=== PATIENT | male | born 1970 | race African-American/Black ===

== ENCOUNTER 2016-09-01 12:31 | Inpatient (IN) | payer OTHER ==
[2016-09-01 16:37] VITALS: BMI 28.1
--- NOTE | 2016-09-01 17:53 | HP ---
Admission ROS [facility] Chief Complaint: I WANT TO GO TO REHAB Allergies/Adverse Reactions: Allergies Allergy/AdvReac Type Severity Reaction Status Date / Time No Known Allergies Allergy Verified 09/01/16 17:40 History of Present Illness: 46 YEARS OLD MALE WITH LONG HISTORY OF MARIJUANA COCAINE NICOTINE DEPENDENCE HISTORY OF HEPATITIS C TREATED HAS SCHIZOAFFECTIVE DISORDER IS ADMITTED TO REHAB Exam Limitations: No Limitations - Ebola screening Have you traveled outside of the country in the last 21 days: No Have you had contact with anyone from an Ebola affected area: No Have you been sick,other than usual withdrawal symptoms: No Do you have a fever: No - Review of Systems Constitutional: Weight Stable EENT: reports: No Symptoms Reported Respiratory: reports: No Symptoms reported Cardiac: reports: No Symptoms Reported GI: reports: No Symptoms Reported : reports: No Symptoms Reported Musculoskeletal: reports: No Symptoms Reported Integumentary: reports: No Symptoms Reported Neuro: reports: No Symptoms reported Endocrine: reports: No Symptoms Reported Hematology: reports: No Symptoms Reported Psychiatric: reports: Judgement Intact, Orientated x3, Depressed Other Systems: Reviewed and Negative Patient History - Patient Medical History Hx Anemia: No Hx Asthma: No Hx Chronic Obstructive Pulmonary Disease (COPD): No Hx Cancer: No Hx Cardiac Disorders: No Hx Congestive Heart Failure: No Hx Hypertension: No Hx Hypercholesterolemia: No Hx Pacemaker: No HX Cerebrovascular Accident: No Hx Seizures: No Hx Dementia: No Hx Diabetes: No Hx Gastrointestinal Disorders: No Hx Liver Disease: No Hx Genitourinary Disorders: No Hx Sexually Transmitted Disorders: No Hx Renal Disease (ESRD): No Hx Thyroid Disease: No Hx Human Immunodeficiency Virus (HIV): No Hx Hepatitis C: Yes Hx Depression: No Hx Suicide Attempt: Yes (2013 OVER DOSE) Hx Bipolar Disorder: No Hx Schizophrenia: Yes - Patient Surgical History Past Surgical History: Yes Hx Appendectomy: Yes (1998) Hx Cholecystectomy: Yes (2013) Anesthesia Reaction: No - PPD History Previous Implant?: Yes Documented Results: Negative w/o proof Implanted On Prior [facility] Admission?: No PPD to be Administered?: Yes - Smoking Cessation Smoking history: Current every day smoker Have you smoked in the past 12 months: Yes Aproximately how many cigarettes per day: 7 Cigars Per Day: 0 Hx Chewing Tobacco Use: No Initiated information on smoking cessation: Yes 'Breaking Loose' booklet given: 09/01/16 - Substance & Tx. History Hx Alcohol Use: No Hx Substance Use: Yes Substance Use Type: Cocaine, Marijuana Hx Substance Use Treatment: Yes - Substances Abused Cocaine Route: Inhalation Frequency: 1-2 times per week Amount used: 300$ Age of first use: 32 Date of Last Use: 08/30/16 Family Disease History - Family Disease History Family Disease History: CA: Brother, Other: Father ( KILLED), Mother ( LUPUS) Admission Physical Exam [facility] - Vital Signs Vital Signs: Vital Signs - 24 hr 09/01/16 16:35 Temperature 97 F L Pulse Rate 75 Respiratory 20 Rate Blood Pressure 115/71 - Physical General Appearance: Yes: No Apparent Distress, Nourished, Appropriately Dressed HEENTM: Yes: Hearing grossly Normal, Normal ENT Inspection, Normocephalic, Normal Voice Respiratory: Yes: Chest Non-Tender, Lungs Clear, Normal Breath Sounds, No Respiratory Distress, No Accessory Muscle Use Neck: Yes: Supple, Trachea in good position Breast: Yes: Breasts Symetrical Cardiology: Yes: Regular Rhythm, Regular Rate, S1, S2 Abdominal: Yes: Normal Bowel Sounds, Non Tender, Soft Genitourinary: Yes: Within Normal Limits Back: Yes: Normal Inspection Musculoskeletal: Yes: full range of Motion, Gait Steady Extremities: Yes: Normal Inspection, Normal Range of Motion, Non-Tender Neurological: Yes: Fully Oriented, Alert, Motor Strength 5/5, Normal Mood/Affect , Normal Response Integumentary: Yes: Warm Lymphatic: Yes: Within Normal Limits - Diagnostic (1) Cocaine dependence, uncomplicated Current Visit: Yes Status: Chronic (2) Cannabis dependence, uncomplicated Current Visit: Yes Status: Chronic (3) Hepatitis C antibody test positive Current Visit: Yes Status: Resolved (4) Nicotine dependence Current Visit: Yes Status: Acute Qualifiers: Nicotine product type: cigarettes Substance use status: in withdrawal Qualified Code(s): F17.213 - Nicotine dependence, cigarettes, with withdrawal (5) Schizoaffective disorder with good prognostic features Current Visit: Yes Status: Suspected Cleared for Admission [facility] - Detox or Rehab [facility] Level of Care: Observation Bed Detox Regimen/Protocol: Not Applicable Claeared for Rehab Admission: Yes [facility] Breath Alcohol Content Breath Alcohol Content: 0 Urine Drug Screen - Results Drug Screen Negative: No Urine Drug Screen Results: THC-Marijuana, NATALIE-Cocaine
[2016-09-01] MEDS ORDERED: P-EPHED 60MG/TRIPROLIDI 2.5MG TABLET PO PRN (17:55)
[2016-09-01] MEDS ORDERED: guaiFENesin/D-METHORPHAN HB 10 ML UNIT-DOSE CUPS PO PRN (17:55)
[2016-09-01] MEDS ORDERED: MAGNESIUM HYDROX 2400MG/30ML ORAL SUSPENSION 30 ML CUP PO PRN (17:55)
[2016-09-01] MEDS ORDERED: MENTHOL/PHENOL 1 EACH UD MM PRN (17:55)
[2016-09-01] MEDS ORDERED: MAG HYDROX/AL HYDROX/SIMETH 30 ML UNIT-DOSE CUP PO PRN (17:55)
[2016-09-01] MEDS ORDERED: IBUPROFEN 400 MG TABLET (FP) PO PRN (17:55)
[2016-09-01] MEDS ORDERED: MAGNESIUM CITRATE 300 ML BOTTLE PO PRN (17:55)
[2016-09-01] MEDS ORDERED: LOPERAMIDE HCL 2 MG CAPSULE PO PRN (17:55)
[2016-09-01] MEDS ORDERED: ACETAMINOPHEN 325 MG TABLET (FP) PO PRN (17:55)
[2016-09-01] MEDS ORDERED: NICOTINE POLACRILEX 2 MG GUM BC PRN (17:55)
[2016-09-01] MEDS ORDERED: NICOTINE 14 MG/24 HOURS TOPICAL PATCH TD PRN (18:45)
[2016-09-01] MEDS: diphenhydrAMINE HCL 50 MG CAPSULE PO PRN (21:57)
[2016-09-01] MEDS: THIAMINE HCL 100 MG TABLET (FP) PO SCH (22:19)
[2016-09-02 00:12] LABS: URINE APPEARANCE CLEAR; URINE BILIRUBIN NEGATIVE (NEGATIVE); URINE BLOOD NEGATIVE (NEGATIVE); URINE COLOR YELLOW; URINE GLUCOSE (UA) NEGATIVE (NEGATIVE); URINE KETONE NEGATIVE (NEGATIVE); URINE NITRITE NEGATIVE (NEGATIVE); URINE PROTEIN NEGATIVE (NEGATIVE); URINE UROBILINOGEN NEGATIVE E.U./dl (0.2-1.0)
[2016-09-02 00:22] LABS: URINE LEUK ESTERASE TRACE (NEGATIVE)
[2016-09-02 00:25] LABS: URINE HYALINE CAST 1 /lpf; URINE MUCUS RARE; URINE RBC 13 /hpf (0-3); URINE WBC 17 /hpf (3-5)
--- NOTE | 2016-09-02 06:31 | HP ---
Psychiatrist Admission - Data Date of interview: 09/02/16 Admission source: Self-referred Identifying data: This is the second [facility] admission for this 46 years old single Black male, father of 2 daughters, unemployed on public assistance, domociled living with significant other Medical History: Significant for past treatment for Hep C and surgery for removal of appendix & galdbladder. Smokes 7 cigarettes daily Psychiatric History: Reports that his first psychiatric contact was when he went to [facility] 2006. He said that he was diagnosed with Schizoaffective Disorder and treated with Seroquel and Trazadone. Following his released from [facility] in 2009 he did not continue with psychiatric treatment for a while and eventually started seeing one at [facility] at [address] [place] [address] in the [place]. He was prescribed Seroquel 50 mg po HS and Trazadone 50 mg po HS which he stopped taking late 2015 when he stopped receiving outpatient services. Denies previous psychiatric inpatient admission but had an overnight ER admission in 2013 for suicidal attempt by overdose. He expresses his desire to resume taking psychotropic medications(Seroquel, Trazadone) during this admission. At present, denies wxperiencing psychotic , manic or depressive symptoms as wel as SI/HI Physical/Sexual Abuse/Trauma History: Denies history of emotional, physical or sexual abuse as well as DV relationship Additional Comment: Reports history of multiple arrests including 2 felony convictions. Denies being on parole/probation at present Vital Signs: Vital Signs - 24 hr 09/01/16 09/02/16 09/02/16 16:35 00:30 03:30 Temperature 97 F L Pulse Rate 75 Respiratory 20 18 18 Rate Blood Pressure 115/71 Allergies/Adverse Reactions: Allergies Allergy/AdvReac Type Severity Reaction Status Date / Time No Known Allergies Allergy Verified 09/01/16 17:40 Date of last physical exam: 09/01/16 Concur with the findings of this exam: Yes - Substance Abuse/Tx History Hx Alcohol Use: No Hx Substance Use: Yes Substance Use Type: Cocaine (Started using cocaine at age 32, consumes $300 worth 1-2 times weekly. Last used on 08/30/16) Hx Substance Use Treatment: Yes (one previous inpt detox & one inpt rehab @ [facility] ) - Admission Criteria Previous failed treatment: Yes Poor recovery environment: Yes Comorbidities: Yes Lacks judgement: Yes Mental Status Exam - Mental Status Exam Alert and Oriented to: Time, Place, Person Cognitive Function: Fair Patient Appearance: Well Groomed Mood: Hopeful, Euthymic Patient Behavior: Cooperative Speech Pattern: Clear Voice Loudness: Normal Thought Process: Intact, Goal Oriented Hallucinations: Denies Suicidal Ideation: Denies Homicidal Ideation: Denies Insight/Judgement: Fair Sleep: Poorly Appetite: Good Muscle strength/Tone: Normal Gait/Station: Normal Psychiatric Findings - Problem List ([place] 1, 2,3) (1) Cocaine dependence, uncomplicated Current Visit: Yes Status: Chronic (2) Cannabis dependence, uncomplicated Current Visit: Yes Status: Chronic (3) Nicotine dependence Current Visit: Yes Status: Acute Qualifiers: Nicotine product type: cigarettes Substance use status: in withdrawal Qualified Code(s): F17.213 - Nicotine dependence, cigarettes, with withdrawal (4) Schizoaffective disorder with good prognostic features Current Visit: Yes Status: Suspected (5) Hepatitis C Current Visit: Yes Status: Acute - Initial Treatment Plan Initial Treatment Plan: 1) Start Seroquel 50 mg po HS and Trazadone 50 mg po HS. 2) Monitor progress
[2016-09-02 09:50] LABS: MCH 32.4 pg (25.7-33.7); MCHC 33.6 g/dl (32.0-35.9); MEAN CELL VOLUME 96.4 fl (80-96); MEAN PLT VOLUME 8.3 fl (7.5-11.1); PLATELET COUNT 164 K/MM3 (134-434); RDW 13.7 % (11.9-15.9)
[2016-09-02 10:16] LABS: ALBUMIN 3.8 g/dl (3.4-5.0); BILIRUBIN,TOTAL 0.8 mg/dL (0.2-1.0); COCKROFT - GAULT 91.18; CREATININE 1.3 mg/dL (0.7-1.3); TOT PROT 7.3 g/dl (6.4-8.2)
[2016-09-02] MEDS: PRENATAL VITAMINS W/ FOLIC ACID TABLET (FP) PO SCH (10:18)
--- NOTE | 2016-09-02 11:43 | EKG ---
Test Reason : Blood Pressure : / mmHG Vent. Rate : 062 BPM Atrial Rate : 062 BPM P-R Int : 164 ms QRS Dur : 094 ms QT Int : 436 ms P-R-T Axes : 068 016 039 degrees QTc Int : 442 ms NORMAL SINUS RHYTHM NORMAL ECG NO PREVIOUS ECGS AVAILABLE Confirmed by SUSAN GSAPAR, GAYATHRI ([id number]) on 09/02/2016 11:43:38 AM Referred By: Confirmed By:GAYATHRI DAVIS MD
[2016-09-02 14:55] LABS: HIV 1 & 2 AB NEGATIVE; HIV 1 AGp24 NEGATIVE
[2016-09-02] MEDS: THIAMINE HCL 100 MG TABLET (FP) PO SCH (21:11)
[2016-09-02] MEDS ORDERED: traZODone HCL 50 MG TABLET (FP) PO SCH (22:00)
[2016-09-02] MEDS ORDERED: QUEtiapine FUMARATE 50 MG TABLET PO SCH (22:00)
[2016-09-03] MEDS: PRENATAL VITAMINS W/ FOLIC ACID TABLET (FP) PO SCH (10:30)
--- NOTE | 2016-09-03 15:14 | PN ---
Psychiatric Progress Note Vital Signs: Vital Signs Period Temp Pulse Resp BP Sys/Kincaid Pulse Ox Last 24 Hr 97.6 F 60 18-18 122/75 Date of Session: 09/03/16 Chief Complaint:: " My legs shakes at night since I've been taking Trazadone" HPI: Patient addressing Cocaine and Cannabis Dependence comorbid with Nicotine Dependence and Schizoaffective Disorder ROS: Hep C Current Medications: Active Medications Generic Name Dose Route Start Last Admin Trade Name Freq PRN Reason Stop Dose Admin Acetaminophen 650 mg 09/01/16 17:55 Tylenol - PO Q4H PRN PAIN Al Hydroxide/Mg Hydroxide 30 ml 09/01/16 17:55 Mylanta Oral Suspension - PO Q6H PRN DYSPEPSIA Diphenhydramine HCl 50 mg 09/01/16 17:55 09/01/16 21:57 Benadryl - PO 50 mg HSMR1 PRN Administration INSOMNIA Eucalyptus/Menthol/Phenol/Sorbitol 1 each 09/01/16 17:55 Cepastat Lozenge - MM Q4H PRN SORE THROAT Guaifenesin 10 ml 09/01/16 17:55 Robitussin Dm - PO Q6H PRN COUGH Hydroxyzine Pamoate 50 mg 09/01/16 17:55 Vistaril - PO Q4H PRN AGITATION Ibuprofen 400 mg 09/01/16 17:55 Motrin - PO Q6H PRN SEVERE PAIN Loperamide HCl 4 mg 09/01/16 17:55 Imodium - PO Q6H PRN DIARRHEA Magnesium Citrate 300 ml 09/01/16 17:55 Citroma - PO Q48H PRN CONSTIPATION Magnesium Hydroxide 30 ml 09/01/16 17:55 Milk Of Magnesia - PO DAILY PRN CONSTIPATION Nicotine 14 mg 09/01/16 18:45 Nicoderm Patch - TD DAILY PRN WITHDRAWAL(CONT SUBST) Nicotine Polacrilex 2 mg 09/01/16 17:55 Nicorette Gum - BC Q2H PRN NICOTINE REPLACEMENT RX Multivit/Folic Acid/Iron 1 tab 09/02/16 10:00 09/03/16 10:30 Vitamins ([facility]) - PO Not Given DAILY BETINA Pseudoephedrine/Triprolidine 1 combo 09/01/16 17:55 Actifed - PO TID PRN NASAL CONGESTION Quetiapine Fumarate 100 mg 09/03/16 22:00 Seroquel - PO HS BETINA Thiamine HCl 100 mg 09/01/16 22:00 09/02/16 21:11 Vitamin B1 - PO 100 mg HS BETINA Administration Current Side Effect: Yes (legs shaking while asleep) Lab tests ordered: Yes Lab tests reviewed: Yes Provider note:: Patient reports experiencing shaking of his legs while asleep and attributes that to Trazadone. He is currently on Trazadone 50mg po HS and Seroquel 50 mg po HS. Requests that Trazadone be disccontinue and Seroquel dosage increased to 100 mg Total face to face time:: 25 Mental Status Exam - Mental Status Exam Alert and Oriented to: Time, Place, Person Cognitive Function: Fair Patient Appearance: Well Groomed Mood: Hopeful, Euthymic Affect: Appropriate Patient Behavior: Cooperative Speech Pattern: Clear Voice Loudness: Normal Thought Process: Intact Thought Disorder: Not Present Hallucinations: Denies Suicidal Ideation: Denies Homicidal Ideation: Denies Insight/Judgement: Fair Sleep: Fair Appetite: Good Muscle strength/Tone: Normal Gait/Station: Normal Psychiatric Treatment Plan - Problem List (1) Cocaine dependence, uncomplicated Current Visit: Yes (2) Cannabis dependence, uncomplicated Current Visit: Yes (3) Nicotine dependence Current Visit: Yes Qualifiers: Nicotine product type: cigarettes Substance use status: in withdrawal Qualified Code(s): F17.213 - Nicotine dependence, cigarettes, with withdrawal (4) Schizoaffective disorder with good prognostic features Current Visit: Yes (5) Hepatitis C Current Visit: Yes Initial treatment plan: 1) Discontinue Trazadone and Seroquel. 2) Start Seroquel 100 mg po HS. 3) Monitor progress
[2016-09-03] MEDS: THIAMINE HCL 100 MG TABLET (FP) PO SCH (21:19)
[2016-09-03] MEDS: diphenhydrAMINE HCL 50 MG CAPSULE PO PRN (21:19)
[2016-09-03] MEDS: QUEtiapine FUMARATE 100 MG TABLET (FP) PO SCH (21:21)
[2016-09-04] MEDS: PRENATAL VITAMINS W/ FOLIC ACID TABLET (FP) PO SCH (10:15)
[2016-09-04] MEDS: diphenhydrAMINE HCL 50 MG CAPSULE PO PRN ×2 (21:03→23:54)
[2016-09-04] MEDS: THIAMINE HCL 100 MG TABLET (FP) PO SCH (21:03)
[2016-09-04] MEDS: QUEtiapine FUMARATE 100 MG TABLET (FP) PO SCH (21:03)
[2016-09-05] MEDS: PRENATAL VITAMINS W/ FOLIC ACID TABLET (FP) PO SCH (10:04)
[2016-09-05] MEDS: QUEtiapine FUMARATE 100 MG TABLET (FP) PO SCH (22:52)
[2016-09-05] MEDS: THIAMINE HCL 100 MG TABLET (FP) PO SCH (22:52)
[2016-09-06] MEDS: PRENATAL VITAMINS W/ FOLIC ACID TABLET (FP) PO SCH (10:16)
[2016-09-06] MEDS: QUEtiapine FUMARATE 100 MG TABLET (FP) PO SCH (22:02)
[2016-09-06] MEDS: THIAMINE HCL 100 MG TABLET (FP) PO SCH (22:02)
[2016-09-07] MEDS: PRENATAL VITAMINS W/ FOLIC ACID TABLET (FP) PO SCH (10:09)
[2016-09-07] MEDS: QUEtiapine FUMARATE 100 MG TABLET (FP) PO SCH (21:10)
[2016-09-07] MEDS: hydrOXYzine PAMOATE 50 MG CAPSULE (FP) PO PRN (21:11)
[2016-09-07] MEDS: THIAMINE HCL 100 MG TABLET (FP) PO SCH (21:11)
[2016-09-08] MEDS: PRENATAL VITAMINS W/ FOLIC ACID TABLET (FP) PO SCH (10:09)
[2016-09-08] MEDS: QUEtiapine FUMARATE 100 MG TABLET (FP) PO SCH (21:33)
[2016-09-08] MEDS: THIAMINE HCL 100 MG TABLET (FP) PO SCH (21:33)
[2016-09-08] MEDS: hydrOXYzine PAMOATE 50 MG CAPSULE (FP) PO PRN (21:34)
[2016-09-09] MEDS: PRENATAL VITAMINS W/ FOLIC ACID TABLET (FP) PO SCH (10:39)
[2016-09-09] MEDS: hydrOXYzine PAMOATE 50 MG CAPSULE (FP) PO PRN (21:39)
[2016-09-09] MEDS: QUEtiapine FUMARATE 100 MG TABLET (FP) PO SCH (21:40)
[2016-09-09] MEDS: THIAMINE HCL 100 MG TABLET (FP) PO SCH (21:40)
[2016-09-10] MEDS: PRENATAL VITAMINS W/ FOLIC ACID TABLET (FP) PO SCH (10:27)
--- NOTE | 2016-09-10 12:07 | PN ---
Psychiatric Progress Note Vital Signs: Vital Signs Period Temp Pulse Resp BP Sys/Kincaid Pulse Ox Last 24 Hr 97.6 F 62 18-18 122/80 Date of Session: 09/10/16 Chief Complaint:: Discharge Note HPI: Patient attending Cocaine Dependence comorbidwith Nicotine Dependence and Schizoaffective Disorder ROS: Hepatitis C Current Medications: Active Medications Generic Name Dose Route Start Last Admin Trade Name Freq PRN Reason Stop Dose Admin Acetaminophen 650 mg 09/01/16 17:55 Tylenol - PO Q4H PRN PAIN Al Hydroxide/Mg Hydroxide 30 ml 09/01/16 17:55 Mylanta Oral Suspension - PO Q6H PRN DYSPEPSIA Diphenhydramine HCl 50 mg 09/01/16 17:55 09/04/16 23:54 Benadryl - PO 50 mg HSMR1 PRN Administration INSOMNIA Eucalyptus/Menthol/Phenol/Sorbitol 1 each 09/01/16 17:55 Cepastat Lozenge - MM Q4H PRN SORE THROAT Guaifenesin 10 ml 09/01/16 17:55 Robitussin Dm - PO Q6H PRN COUGH Hydroxyzine Pamoate 50 mg 09/01/16 17:55 09/09/16 21:39 Vistaril - PO 50 mg Q4H PRN Administration AGITATION Ibuprofen 400 mg 09/01/16 17:55 Motrin - PO Q6H PRN SEVERE PAIN Loperamide HCl 4 mg 09/01/16 17:55 Imodium - PO Q6H PRN DIARRHEA Magnesium Citrate 300 ml 09/01/16 17:55 Citroma - PO Q48H PRN CONSTIPATION Magnesium Hydroxide 30 ml 09/01/16 17:55 Milk Of Magnesia - PO DAILY PRN CONSTIPATION Nicotine 14 mg 09/01/16 18:45 Nicoderm Patch - TD DAILY PRN WITHDRAWAL(CONT SUBST) Nicotine Polacrilex 2 mg 09/01/16 17:55 Nicorette Gum - BC Q2H PRN NICOTINE REPLACEMENT RX Multivit/Folic Acid/Iron 1 tab 09/02/16 10:00 09/10/16 10:27 Vitamins ([facility]) - PO Not Given DAILY BETINA Pseudoephedrine/Triprolidine 1 combo 09/01/16 17:55 Actifed - PO TID PRN NASAL CONGESTION Quetiapine Fumarate 100 mg 09/03/16 22:00 09/09/16 21:40 Seroquel - PO Not Given HS BETINA Thiamine HCl 100 mg 09/01/16 22:00 09/09/16 21:40 Vitamin B1 - PO Not Given HS BETINA Current Side Effect: No Lab tests ordered: Yes Lab tests reviewed: Yes Provider note:: Patient will complete this program on 09/11/16. He has met his treatment goals and will continue to address his issues in outpatient treatment at [facility]. He verbalized understanding of the negative consequences of his addiction and told internal communications writer that witnessing how far gone some peers in this program are in their addictive journey is a wake up call to maintain sobriety. He responded well to Seroquel 100 mg po HS. Script for that medication will be electronically transmitted to. He is stable for discharge on 09/11/16 Total face to face time:: 35 Mental Status Exam - Mental Status Exam Alert and Oriented to: Time, Place, Person Cognitive Function: Fair Patient Appearance: Well Groomed Mood: Hopeful, Euthymic Affect: Appropriate Patient Behavior: Cooperative Speech Pattern: Clear Voice Loudness: Normal Thought Process: Intact, Goal Oriented Thought Disorder: Not Present Hallucinations: Denies Suicidal Ideation: Denies Homicidal Ideation: Denies Insight/Judgement: Fair Sleep: Fair Appetite: Good Muscle strength/Tone: Normal Gait/Station: Normal Psychiatric Treatment Plan - Problem List (1) Cocaine dependence, uncomplicated Current Visit: Yes (2) Cannabis dependence, uncomplicated Current Visit: Yes (3) Nicotine dependence Current Visit: Yes Qualifiers: Nicotine product type: cigarettes Substance use status: in withdrawal Qualified Code(s): F17.213 - Nicotine dependence, cigarettes, with withdrawal (4) Schizoaffective disorder with good prognostic features Current Visit: Yes (5) Hepatitis C Current Visit: Yes Initial treatment plan: Patient will be disccharged tomorrow and referred to [facility] for treatment
[2016-09-10] MEDS: hydrOXYzine PAMOATE 50 MG CAPSULE (FP) PO PRN (21:55)
[2016-09-10] MEDS: QUEtiapine FUMARATE 100 MG TABLET (FP) PO SCH (21:56)
[2016-09-10] MEDS: THIAMINE HCL 100 MG TABLET (FP) PO SCH (21:56)
[2016-09-11 06:58] VITALS: BP 127/81; PULSE 55; TEMP 97.7
[2016-09-11] MEDS: PRENATAL VITAMINS W/ FOLIC ACID TABLET (FP) PO SCH (10:26)
== END 2016-09-11 09:35 | disposition home or self-care (01) | DRG 772 ==
LOC: YASAS 12:31 → Y3W 18:09
PROVIDERS: ADMIT Psychiatry & Neurology Psychiatry; ATTEND Psychiatry & Neurology Psychiatry
PROC: HZ42ZZZ Group Counseling for Substance Abuse Treatment, Cognitive-Behavioral (ICD-10-PCS; principal; 2016-09-01)
DX: F14.20 Cocaine dependence, uncomplicated (principal); F12.20 Cannabis dependence, uncomplicated; F17.213 Nicotine dependence, cigarettes, with withdrawal; F25.8 Other schizoaffective disorders; B18.2 Chronic viral hepatitis C; Z91.5 Personal history of self-harm
CPT/HCPCS: 36415; 80053; 81003; 81015; 85027; 86593; 87389; 93005; 93010

== ENCOUNTER 2018-11-19 11:27 | Inpatient (IN) | payer OTHER ==
[2018-11-19 12:27] VITALS: BMI 26.9
--- NOTE | 2018-11-19 13:15 | HP ---
CIWA Score Nausea/Vomitin Muscle Tremors: 2 Anxiety: 2 Agitation: 2 Paroxysmal Sweats: 2 Orientation: 0-Oriented Tacttile Disturbances: 2-Mild Itch/Numbness/Burn Auditory Disturbances: 1-Very Mild Visual Disturbances: 1-Very Mild Sensitivity Headache: 1-Very Mild CIWA-Ar Total Score: 15 - Admission Criteria [facility] Guidelines: Admission for Medically Managed Detox: Requires at least one of the followin. CIWA greater than 12 2. Seizures within the past 24 hours 3. Delirium tremens within the past 24 hours 4. Hallucinations within the past 24 hours 5. Acute intervention needed for co occurring medical disorder 6. Acute intervention needed for co occurring psychiatric disorder 7. Severe withdrawal that cannot be handled at a lower level of care (continued vomiting, continued diarrhea, abnormal vital signs) requiring intravenous medication and/or fluids 8. Patient presents the following: CIWA greater than 12 Admission Criteria Met: Admission criteria met Admission ROS S - [facility] Chief Complaint: I am here for detox and rehab Allergies/Adverse Reactions: Allergies Allergy/AdvReac Type Severity Reaction Status Date / Time No Known Allergies Allergy Verified 11/19/18 12:17 History of Present Illness: 48 year old male with alcohol dependence presents for detox with rehab to follow. He denies blackouts or seizures related to alcohol. Exam Limitations: No Limitations - Ebola screening Have you traveled outside of the country in the last 21 days: No (N) Have you had contact with anyone from an Ebola affected area: No Have you been sick,other than usual withdrawal symptoms: No Do you have a fever: No - Review of Systems Constitutional: Chills EENT: reports: Blurred Vision Respiratory: reports: SOB with Exertion Cardiac: reports: No Symptoms Reported GI: reports: Abdominal cramping : reports: No Symptoms Reported Musculoskeletal: reports: Back Pain, Muscle Pain Integumentary: reports: No Symptoms Reported Neuro: reports: Headache, Numbness, Tingling Endocrine: reports: No Symptoms Reported Hematology: reports: No Symptoms Reported Psychiatric: reports: Anxious, Depressed Other Systems: Reviewed and Negative Patient History - Patient Medical History Hx Anemia: No Hx Asthma: No Hx Chronic Obstructive Pulmonary Disease (COPD): No Hx Cancer: No Hx Cardiac Disorders: No Hx Congestive Heart Failure: No Hx Hypertension: No Hx Hypercholesterolemia: No Hx Pacemaker: No HX Cerebrovascular Accident: No Hx Seizures: No Hx Dementia: No Hx Diabetes: No Hx Gastrointestinal Disorders: No Hx Liver Disease: No Hx Genitourinary Disorders: No Hx Sexually Transmitted Disorders: No Hx Renal Disease (ESRD): No Hx Thyroid Disease: No Hx Human Immunodeficiency Virus (HIV): No Hx Hepatitis C: Yes (Treated) Hx Depression: Yes Hx Suicide Attempt: No Hx Bipolar Disorder: No Hx Schizophrenia: Yes - Patient Surgical History Past Surgical History: Yes Hx Neurologic Surgery: No Hx Cataract Extraction: No Hx Cardiac Surgery: No Hx Lung Surgery: No Hx Breast Surgery: No Hx Breast Biopsy: No Hx Abdominal Surgery: No Hx Appendectomy: Yes (1998) Hx Cholecystectomy: Yes (2013) Hx Genitourinary Surgery: No Hx Section: No Hx Orthopedic Surgery: No Hx Hysterectomy: No Anesthesia Reaction: No - PPD History Previous Implant?: Yes Documented Results: Negative w/proof Implanted On Prior [facility] Admission?: Yes Date: 09/03/16 PPD to be Administered?: No - Smoking Cessation Smoking history: Current every day smoker Have you smoked in the past 12 months: Yes Aproximately how many cigarettes per day: 10 Cigars Per Day: 0 Hx Chewing Tobacco Use: No Initiated information on smoking cessation: Yes 'Breaking Loose' booklet given: 11/19/18 - Substances abused Cocaine Substance route: Inhalation Frequency: 1-2 times per week Amount used: 400 usd Age of first use: 35 Date of last use: 11/18/18 Marijuana/Hashish Substance route: Smoking Frequency: Daily Amount used: 30 usd Age of first use: 11 Date of last use: 11/18/18 Alcohol Substance route: Oral Frequency: 3-6 times per week Amount used: beer 2x6 packs Age of first use: 35 Date of last use: 11/05/18 Family Disease History - Family Disease History Family Disease History: CA: Brother, Other: Father ( KILLED), Mother ( LUPUS) Admission Physical Exam S - Vital Signs Vital Signs: Vital Signs - 24 hr 11/19/18 12:21 Temperature 98 F Pulse Rate 60 Respiratory 14 Rate Blood Pressure 138/89 - Physical General Appearance: Yes: No Apparent Distress HEENTM: Yes: EOMI, Hearing grossly Normal, Normocephalic, Normal Voice, VENKATESH Respiratory: Yes: Chest Non-Tender, Lungs Clear, Normal Breath Sounds, No Respiratory Distress, No Accessory Muscle Use Neck: Yes: No masses,lesions,Nodules, Supple Breast: Yes: Breast Exam Deferred Cardiology: Yes: Regular Rhythm, Regular Rate, S1, S2 Abdominal: Yes: Normal Bowel Sounds, Non Tender, Soft Genitourinary: Yes: Within Normal Limits Back: Yes: Normal Inspection Musculoskeletal: Yes: full range of Motion, Gait Steady, Pelvis Stable Extremities: Yes: Tremors Neurological: Yes: certified pharmacist assistant II-XII NML intact, Fully Oriented, Alert, Normal Mood/ Affect, Normal Response, Numbness (in the right arm) Integumentary: Yes: Normal Color, Clammy Lymphatic: Yes: Within Normal Limits - Diagnostic (1) Alcohol dependence with uncomplicated withdrawal Current Visit: Yes Status: Acute (2) Hepatitis C Current Visit: No Status: Chronic Qualifiers: Viral hepatitis chronicity: carrier Qualified Code(s): B18.2 - Chronic viral hepatitis C (3) Nicotine dependence Current Visit: No Status: Acute Qualifiers: Nicotine product type: cigarettes Substance use status: uncomplicated Qualified Code(s): F17.210 - Nicotine dependence, cigarettes, uncomplicated (4) Cannabis dependence, uncomplicated Current Visit: No Status: Chronic (5) Cocaine dependence, uncomplicated Current Visit: No Status: Chronic Cleared for Admission S - Detox or Rehab [facility] Level of Care: Medically Managed Detox Regimen/Protocol: Librium Breathalyzer - Breathalyzer Breathalyzer: 0 Urine Drug Screen - Test Device Lot number: [id number] Expiration date: 08/26/20 - Control Is test valid?: Yes - Results Drug screen NEGATIVE: No Urine drug screen results: THC-Marijuana, NATALIE-Cocaine Inpatient Rehab Admission - Rehab Decision to Admit Inpatient rehab admission?: No
[2018-11-19] MEDS ORDERED: chlordiazePOXIDE HCL 25 MG CAPSULE PO ONE (13:21)
[2018-11-19] MEDS ORDERED: ACETAMINOPHEN 325 MG TABLET (FP) PO PRN ×2 (13:21)
[2018-11-19] MEDS ORDERED: MELATONIN 5 MG TABLETS PO PRN (13:21)
[2018-11-19] MEDS ORDERED: BISMUTH SUBSALICYLATE 524 MG/30 ML UD PO PRN (13:21)
[2018-11-19] MEDS ORDERED: METHOCARBAMOL 500 MG TABLET PO PRN (13:21)
[2018-11-19] MEDS ORDERED: MAG HYDROX/AL HYDROX/SIMETH 30 ML UNIT-DOSE CUP PO PRN (13:21)
[2018-11-19] MEDS ORDERED: chlordiazePOXIDE HCL 10 MG CAPSULE PO PRN (13:21)
[2018-11-19] MEDS ORDERED: MENTHOL/PHENOL 1 EACH UD MM PRN (13:21)
[2018-11-19] MEDS ORDERED: MAGNESIUM HYDROX 2400MG/30ML ORAL SUSPENSION 30 ML CUP PO PRN (13:21)
[2018-11-19] MEDS ORDERED: MAGNESIUM CITRATE 300 ML BOTTLE PO PRN (13:21)
[2018-11-19] MEDS ORDERED: IBUPROFEN 400 MG TABLET (FP) PO PRN (13:21)
[2018-11-19] MEDS: THIAMINE HCL 100 MG TABLET (FP) PO SCH (22:14)
[2018-11-19] MEDS: NICOTINE POLACRILEX 2 MG GUM BUC PRN (22:15)
[2018-11-20] MEDS: chlordiazePOXIDE HCL 25 MG CAPSULE PO SCH ×2 (05:51→22:05)
[2018-11-20 09:33] LABS: HEMATOCRIT 38.2 % (35.4-49); HEMOGLOBIN 13.3 GM/dL (11.7-16.9); MCH 32.9 pg (25.7-33.7); MCHC 34.8 g/dl (32.0-35.9); MEAN CELL VOLUME 94.6 fl (80-96); MEAN PLT VOLUME 8.2 fl (7.5-11.1); PLATELET COUNT 188 K/MM3 (134-434); RBC 4.04 M/mm3 (4.00-5.60); RDW 14.3 % (11.9-15.9); WHITE BLOOD COUNT 6.8 K/mm3 (4.0-10.0)
[2018-11-20 09:42] LABS: ALBUMIN 3.3 g/dl (3.4-5.0); BILIRUBIN,TOTAL 0.5 mg/dL (0.2-1); CALCIUM 8.5 mg/dL (8.5-10.1); POTASSIUM 3.7 mmol/L (3.5-5.1); TOT PROT 6.6 g/dl (6.4-8.2)
[2018-11-20] MEDS: PRENATAL VITAMINS W/ FOLIC ACID TABLET (FP) PO SCH (09:58)
--- NOTE | 2018-11-20 15:58 | PN ---
S CIWA - CIWA Score Nausea/Vomitin-Mild Nausea/No Vomiting Muscle Tremors: 3 Anxiety: 4-Mod. Anxious/Guarded Agitation: 2 Paroxysmal Sweats: 3 Orientation: 0-Oriented Tacttile Disturbances: 0-None Auditory Disturbances: 0-None Visual Disturbances: 0-None Headache: 0-None Present CIWA-Ar Total Score: 13 [facility] Progress Note (SOAP) Subjective: Anxious, interrupted sleep Objective: 11/20/18 15:54 Last Vital Signs Temp Pulse Resp BP Pulse Ox 97.9 F 53 L 18 120/69 11/20/18 13:11 11/20/18 13:11 11/20/18 13:11 11/20/18 13:11 Laboratory Tests 11/20/18 11/20/18 11/20/18 07:45 07:45 07:45 WBC 6.8 RBC 4.04 Hgb 13.3 Hct 38.2 MCV 94.6 MCH 32.9 MCHC 34.8 RDW 14.3 Plt Count 188 MPV 8.2 Sodium 141 Potassium 3.7 Chloride 106 Carbon Dioxide 28 Anion Gap 7 L BUN 18.0 Creatinine 1.0 Est GFR (CKD-EPI)AfAm 104.15 Est GFR (CKD-EPI)NonAf 89.86 Random Glucose 88 Calcium 8.5 Total Bilirubin 0.5 AST 11 L ALT 18 Alkaline Phosphatase 74 Total Protein 6.6 Albumin 3.3 L RPR Titer Nonreactive Labs reviewed Assessment: 11/20/18 15:58 Withdrawal sxs Plan: Continue detox Encouraged PO water intake
[2018-11-20] MEDS: THIAMINE HCL 100 MG TABLET (FP) PO SCH (22:19)
[2018-11-21] MEDS: chlordiazePOXIDE 5 MG CAPSULE PO SCH ×2 (05:57→13:38)
--- NOTE | 2018-11-21 09:18 | CONSULT ---
[facility] Psychiatric Consult - Data Date of interview: 11/21/18 Admission source: Self-referred Identifying data: Mr Gaviria is a 48 years old single Black male, father of 2 children, unemployed with no source of income, homeless seeking detox treatment for alcohol, cocaine and cannabis Substance Abuse History: Reports history of alcohol, cocaine and marijuana use. Refer to addiction counselor's summary for further information Medical History: Significant for history of treatment for Hep C and surgery( appendectomy, cholecystectomy). Smokes 10 cigarettes daily Psychiatric History: Patient is known to insurance underwriter from an encounter during a previous admission to this facility in August 2016. Historical narrative is consistent. He reports that his first psychiatric contact occured in 2006 while in group home. He said that he was diagnosed with Schizoaffective Disorder and treated with Seroquel and Trazadone. Following his released from group home in 2009 he did not continue with psychiatric treatment for a while and eventually started seeing one at [facility] at [address] [place] [address] in the [place]. He was prescribed Seroquel 50 mg po HS and Trazadone 50 mg po HS which he stopped taking late 2015 when he stopped receiving outpatient services. Most recent psychiatric treatment was in 2018 while in residential treatment at [facility] for 4-5 months. He was discharged from [facility] in February 2018. While there he said that he was prescribed Zoloft and Vistaril. Told insurance underwriter that he has been off medications since. Denies previous psychiatric inpatient admission but had an overnight ER admission in 2013 for suicidal attempt by overdose. At present, denies experiencing psychotic, manic symptoms as well as S/H ideations. However , reports feeling depressed and sleeping poorly. Requests to be ordered Seroquel during this current admission Physical/Sexual Abuse/Trauma History: Denies history of emotional, physical or sexual abuse as well as DV relationship Additional Comment: Reports history of multiple arrests including 2 felony convictions. Denies being on parole/probation at present Mental Status Exam - Mental Status Exam Alert and Oriented to: Time, Place, Person Cognitive Function: Fair Patient Appearance: Disheveled Mood: Depressed, Anxious Affect: Appropriate Patient Behavior: Cooperative Speech Pattern: Clear Voice Loudness: Normal Thought Process: Intact, Goal Oriented Hallucinations: Denies Suicidal Ideation: Denies Homicidal Ideation: Denies Insight/Judgement: Poor Sleep: Poorly Appetite: Fair Muscle strength/Tone: Normal Gait/Station: Normal Psychiatric Findings - Problem List ([place] 1, 2,3) (1) Schizoaffective disorder with good prognostic features Current Visit: No Status: Chronic (2) Substance induced mood disorder Current Visit: Yes Status: Acute (3) Substance-induced sleep disorder Current Visit: Yes Status: Acute (4) Alcohol dependence with uncomplicated withdrawal Current Visit: Yes Status: Acute (5) Cocaine dependence, uncomplicated Current Visit: No Status: Acute (6) Cannabis dependence, uncomplicated Current Visit: No Status: Acute (7) Nicotine dependence Current Visit: No Status: Chronic Qualifiers: Nicotine product type: cigarettes Substance use status: uncomplicated Qualified Code(s): F17.210 - Nicotine dependence, cigarettes, uncomplicated (8) Hepatitis C Current Visit: No Status: Chronic Qualifiers: Viral hepatitis chronicity: carrier Qualified Code(s): B18.2 - Chronic viral hepatitis C (9) History of appendectomy Current Visit: Yes Status: Resolved (10) Hx of cholecystectomy Current Visit: Yes Status: Resolved - Initial Treatment Plan Initial Treatment Plan: 1) Start Seroquel 50 mg po HS. 2) Continue inpatient detoxification
[2018-11-21] MEDS: hydrOXYzine PAMOATE 25 MG CAPSULE (FP) PO PRN ×2 (10:03→22:05)
[2018-11-21] MEDS: PRENATAL VITAMINS W/ FOLIC ACID TABLET (FP) PO SCH (10:04)
[2018-11-21] MEDS: NICOTINE POLACRILEX 2 MG GUM BUC PRN (10:05)
--- NOTE | 2018-11-21 11:07 | PN ---
S CIWA - CIWA Score Nausea/Vomitin-No Nausea/No Vomiting Muscle Tremors: 3 Anxiety: 2 Agitation: 3 Paroxysmal Sweats: 2 Orientation: 0-Oriented Tacttile Disturbances: 0-None Auditory Disturbances: 0-None Visual Disturbances: 0-None Headache: 0-None Present CIWA-Ar Total Score: 10 S Progress Note (SOAP) Subjective: restless sweats mild shakes the librium is making me too groggy Objective: 11/21/18 11:06 Vital Signs Temperature 97.7 F 11/21/18 09:28 Pulse Rate 57 L 11/21/18 09:28 Respiratory Rate 18 11/21/18 09:28 Blood Pressure 120/73 11/21/18 09:28 O2 Sat by Pulse Oximetry (%) Laboratory Tests 11/20/18 11/20/18 11/20/18 07:45 07:45 07:45 WBC 6.8 RBC 4.04 Hgb 13.3 Hct 38.2 MCV 94.6 MCH 32.9 MCHC 34.8 RDW 14.3 Plt Count 188 MPV 8.2 Sodium 141 Potassium 3.7 Chloride 106 Carbon Dioxide 28 Anion Gap 7 L BUN 18.0 Creatinine 1.0 Est GFR (CKD-EPI)AfAm 104.15 Est GFR (CKD-EPI)NonAf 89.86 Random Glucose 88 Calcium 8.5 Total Bilirubin 0.5 AST 11 L ALT 18 Alkaline Phosphatase 74 Total Protein 6.6 Albumin 3.3 L RPR Titer Nonreactive labs noted aaox3 ambulating no acute distress Assessment: 11/21/18 11:06 withdrawal sx Plan: continue detox with modified dose regimen increase fluids
[2018-11-21] MEDS: QUEtiapine FUMARATE 50 MG TABLET PO SCH (22:06)
[2018-11-21] MEDS: THIAMINE HCL 100 MG TABLET (FP) PO SCH (22:06)
[2018-11-22] MEDS ORDERED: chlordiazePOXIDE HCL 10 MG CAPSULE PO PRN
[2018-11-22] MEDS: chlordiazePOXIDE HCL 10 MG CAPSULE PO SCH ×2 (06:44→12:12)
[2018-11-22] MEDS: PRENATAL VITAMINS W/ FOLIC ACID TABLET (FP) PO SCH (10:19)
--- NOTE | 2018-11-22 11:31 | PN ---
S CIWA - CIWA Score Nausea/Vomitin-No Nausea/No Vomiting Muscle Tremors: 3 Anxiety: 1-Mildly Anxious Agitation: 2 Paroxysmal Sweats: No Perspiration Orientation: 0-Oriented Tacttile Disturbances: 0-None Auditory Disturbances: 0-None Visual Disturbances: 0-None Headache: 0-None Present CIWA-Ar Total Score: 6 BHS Progress Note (SOAP) Subjective: sweats interrupted sleep tired Objective: 11/22/18 11:35 Vital Signs Temperature 97.5 F L 11/22/18 09:34 Pulse Rate 78 11/22/18 09:34 Respiratory Rate 18 11/22/18 09:34 Blood Pressure 120/72 11/22/18 09:34 O2 Sat by Pulse Oximetry (%) aaox3 ambulating no acute distress Assessment: 11/22/18 11:35 mild withdrawal sx Plan: continue detox increase fluids
[2018-11-22] MEDS: NICOTINE POLACRILEX 2 MG GUM BUC PRN (21:30)
[2018-11-22] MEDS: QUEtiapine FUMARATE 50 MG TABLET PO SCH (22:11)
[2018-11-22] MEDS: THIAMINE HCL 100 MG TABLET (FP) PO SCH (22:11)
[2018-11-23] MEDS ORDERED: chlordiazePOXIDE HCL 10 MG CAPSULE PO ONE (05:00)
--- NOTE | 2018-11-23 08:59 | DS ---
[facility] Detox Discharge Summary Admission Date: 11/19/18 Discharge Date: 11/23/18 - History Present History: Alcohol Dependence, Cannabis Dependence, Cocaine Dependence - Physical Exam Results Vital Signs: Vital Signs Temperature 98.2 F 11/23/18 07:28 Pulse Rate 60 11/23/18 07:28 Respiratory Rate 20 11/23/18 07:28 Blood Pressure 108/65 11/23/18 07:28 O2 Sat by Pulse Oximetry (%) - Treatment Hospital Course: Detox Protocol Followed, Detoxed Safely, Responded well, Discharged Condition Good, Rehab Referral Accepted Patient has Accepted a Rehab Referral to[facility] - Medication Discharge Medications: Ambulatory Orders Quetiapine Fumarate [Seroquel -] 50 mg PO HS 09/01/16 traZODone HCL [Desyrel -] 50 mg PO HS 09/01/16 Sertraline HCl [Zoloft] 11/19/18 - Diagnosis (1) Alcohol dependence with uncomplicated withdrawal Current Visit: Yes Status: Chronic (2) Substance induced mood disorder Current Visit: Yes Status: Acute (3) Substance-induced sleep disorder Current Visit: Yes Status: Acute (4) History of appendectomy Current Visit: No Status: Resolved (5) Hx of cholecystectomy Current Visit: No Status: Resolved (6) Cannabis dependence, uncomplicated Current Visit: Yes Status: Chronic (7) Cocaine dependence, uncomplicated Current Visit: Yes Status: Chronic (8) Hepatitis C Current Visit: No Status: Chronic Qualifiers: Viral hepatitis chronicity: carrier Qualified Code(s): B18.2 - Chronic viral hepatitis C (9) Nicotine dependence Current Visit: Yes Status: Chronic Qualifiers: Nicotine product type: cigarettes Substance use status: uncomplicated Qualified Code(s): F17.210 - Nicotine dependence, cigarettes, uncomplicated (10) Schizoaffective disorder with good prognostic features Current Visit: No Status: Chronic - AMA Did Patient Leave Against Medical Advice: No
[2018-11-23] MEDS: PRENATAL VITAMINS W/ FOLIC ACID TABLET (FP) PO SCH (10:16)
[2018-11-23 13:47] VITALS: BP 137/88; PULSE 20; TEMP 97.7
== END 2018-11-23 13:58 | disposition home or self-care (01) | DRG 774 ==
LOC: YASAS 11:27 → Y6N 14:06
PROVIDERS: ADMIT Surgery; ATTEND Surgery
PROC: HZ2ZZZZ Detoxification Services for Substance Abuse Treatment (ICD-10-PCS; principal; 2018-11-19)
DX: F10.230 Alcohol dependence with withdrawal, uncomplicated (principal); F14.20 Cocaine dependence, uncomplicated; F12.20 Cannabis dependence, uncomplicated; F17.210 Nicotine dependence, cigarettes, uncomplicated; F19.24 Other psychoactive substance dependence with psychoactive substance-induced mood disorder; F19.282 Other psychoactive substance dependence with psychoactive substance-induced sleep disorder; F25.1 Schizoaffective disorder, depressive type; B18.2 Chronic viral hepatitis C
CPT/HCPCS: 36415; 80053; 85027; 86480; 86593